=== PATIENT | female | born 1995 | race Caucasian/White ===

== ENCOUNTER 2024-08-15 10:44 | Emergency (ER) | payer MEDICAID, SELFPAY ==
[2024-08-15 10:44] VITALS: BP 124/99; PULSE 126; PULSE 134; RESP 18; TEMP 36.8; O2SAT 99; BMI 30.4
[2024-08-15 11:22] VITALS: BP 124/99; PULSE 134; RESP 18; TEMP 36.8; O2SAT 99
[2024-08-15 11:44] LABS: Absolute Lymphocyte Count 3.05 X10^3/uL (0.83-4.51); Absolute Neutrophil Count 4.6 X10^3/uL (2.0-7.7); Basophil# 0.05 X10^3/uL; Basophil% 0.6 % (0-1); Eosinophil# 0.14 X10^3/uL; Eosinophils% 1.7 % (0-5); Hematocrit 42.8 % (37-47); Hemoglobin 14.2 g/dL (12.0-15.0); Lymphocyte # 3.05 X10^3/ul (0.83-4.51); Lymphocyte % 36.1 % (19-41); Mean Corp Hgb Conc 33.2 g/dL (32-36); Mean Corpuscular Hgb 30.5 pg (27.0-32.0); Mean Corpuscular Volume 91.8 fL (81-99); Mean Platelet Vol. 10.1 fl (6.2-12.0); Monocyte# 0.55 X10^3/uL; Monocyte% 6.5 % (0-10); NRBC Flagged by Analyzer 0 % (0-5); Neutrophil # 4.64 X10^3/uL (2.7-7.7); Neutrophil % 54.7 % (47-70); Platelet Count 276 K/mm3 (150-450); RBC Distribution Width CV 12.2 % (11.6-14.6); RBC Distribution Width SD 41.1 fl (35.1-43.9); Red Blood Count 4.66 M/mm3 (4.2-5.4); White Blood Count 8.5 K/mm3 (4.4-11.0)
[2024-08-15] MEDS: 0.9% Normal Saline (1000mL) 1,000 ML 999 ML IV (11:59)
[2024-08-15 12:10] LABS: Color, Urine Yellow (Yellow); Glucose, Dipstick Normal (Normal); Ketone-Dipstick 15 mg/dl (Negative); Leukocyte Esterase-Dipstick 500 /ul (Negative); Nitrite-Dipstick Negative (Negative); Occult Blood-Urine 10 /ul (Negative); Protein-Dipstick 30 mg/dl (Negative); Urine Clarity Sl. Cloudy (Clear); Urine Urobilinogen 12 mg/dl (Normal)
[2024-08-15 12:11] LABS: AST(SGOT) 65 U/L (15-37); Alanine Aminotransfer ALT/SGPT 89 U/L (13-56); Albumin, Serum 4.2 g/dL (3.2-5.0); Alkaline Phosphatase 80 U/L (45-117); Anion Gap 5 (5-15); BUN 15 mg/dL (7-18); BUN/Creat Ratio 15.2 RATIO (10-20); Calcium,Total 9.6 mg/dL (8.5-10.1); Chloride 106 mmol/L (98-107); Creatinine, Serum 0.99 mg/dL (0.55-1.02); EST Glomerular Filtration Rate 71 mL/min (>60); Est Glom Filt Rate - Afr Amer 86 mL/min (>60); Estimated Creatinine Clearance 96.43 ml/min; Globulin 4.2 g/dL (2.2-4.2); Glucose 87 mg/dL (74-106); Potassium 3.3 mmol/L (3.5-5.1); Protein, Total 8.4 g/dL (6.4-8.2); Sodium Level 140 mmol/L (136-145)
[2024-08-15 12:12] LABS: Lactic Acid 1.3 mmol/L (0.4-1.9)
[2024-08-15 12:13] LABS: Urine Bilirubin Dipstick 1 mg/dL (Negative)
[2024-08-15 12:19] LABS: White Blood Cells 10-25 SEEN /hpf (0-5)
[2024-08-15 12:20] LABS: Bacteria 1+ /hpf (None Seen); Mucous, Urine 1+ /hpf (<or=2+); Squamous Epithelial Cells - UA 5-10 SEEN /hpf (5-10)
[2024-08-15 12:21] LABS: Internal QC Validated? YES +Cl - CLEAR BKGD; Pregnancy, Urine Negative Negative; Red Blood Cells-Urine 0 SEEN /hpf (0-5)
[2024-08-15] MEDS: Ondansetron 4 MG/2 ML Vial IV (12:27)
[2024-08-15] MEDS: morphine 8 MG/ML Syringe 6 MG IV (12:28)
[2024-08-15] MEDS: Ketorolac 15 MG/ML Vial IV (12:28)
--- NOTE | 2024-08-15 12:30 | CT_ITS ---
PROCEDURE: ABDOMEN/PELVIS W IV CONT ONLY REASON FOR EXAM: Left flank pain. Recent diagnosis of renal infection. TECHNIQUE: Abdomen and pelvis CT with intravenous contrast. No oral contrast. IV CONTRAST: 100 cc of Isovue-300. COMPARISON: None. FINDINGS: Lung bases: Clear Liver: Unremarkable. Gallbladder: Unremarkable. Spleen: Unremarkable. Pancreas: Unremarkable. Adrenals: Unremarkable. Kidneys: Unremarkable. Bladder: Unremarkable. Reproductive Organs: 2.3 cm cyst in the left ovary. Follicles are seen in the right ovary. Bowel: Colonic diverticulosis without diverticulitis. Appendix: Normal. Lymph nodes: No suspicious lymph node enlargement. Vasculature: Major vascular structures are unremarkable. Peritoneum / Retroperitoneum: No ascites. No free air. Bones: Unremarkable. CT/Abdomen/Pelvis W IV Cont ONLY IMPRESSION: 2.3 cm cyst in the left ovary. One or more dose reduction techniques were used (e.g., Automated exposure contr ol, adjustment of the mA and/or kV according to patient size, use of iterative reconstruction technique). Reading Location: [id number]
--- NOTE | 2024-08-15 13:50 | ED.RN ---
PT REQUESTED HER IV TO BE REMOVED AND IS LEAVING. STATES SHE W3AS MOVED FROM HER ROOM TO A HALLWAY BED AND ALSO HAD VISITORS COME BACK WHEN SHE DIDN'T WANT ANY. STATES SOMETHING ABOUT A SISTER IN LAW BUT DIDN'T REPEAT WHAT WAS SAID SO UNSURE WHAT IS GOING ON. IV WAS REMOVED AND PT AMBULATED FROM ER.
--- NOTE | 2024-08-15 15:21 | EDS_ITS ---
HPI HPI - GI History of Present Illness Chief Complaint: Flank Pain Informant: patient Narrative Narrative: Patient is a 29-year-old female with history of pyelonephritis and VICTOR MANUEL presenting with worsening nausea, vomiting and left flank pain. Patient states she came down with flulike symptoms with nausea and vomiting 5 days ago. She is having worsening pain in the back that started yesterday. She describes the pain as constant with fluctuating intensity. States it radiates to her back. States the pain is now unbearable. She does want her left at the bottom of her ribs. She does note her urines been dark for the past 3 days. She denies any dysuria. She denies any abnormal vaginal discharge. She has no history of kidney stones. Has Not noticed any hematuria but notes her urine has been darker. Yesterday she had temperature by 9.9. Yesterday she went to an outside emergency room where they did a urinalysis, gave her a dose of Zofran IM Toradol and discharged her home with a prescription for Omnicef, Zofran and oral Toradol. She feels her symptoms are worsening came in for repeat evaluation. She tells me that about 2 years ago she had kidney infection with E. coli is admitted to the hospital for couple days. She had an VICTOR MANUEL at that time. She follows with outpatient labs for 7 months until her kidney function normalized. Denies any history of any abdominal surgeries. Denies any concern for . No other complaints or concerns at this time. PFSH PFSH Allergy/AdvReac Type Severity Reaction Status Date / Time No Known Allergies Allergy Verified 08/15/24 10:45 Social History Smoking Status: Never smoker ROS ROS ED Constitutional Constitutional ED: Reports chills; Denies fever(s) Cardiovascular Cardiovascular: Denies chest pain Respiratory/Chest Respiratory/Chest: Denies cough or dyspnea Gastrointestinal Gastrointestinal: Reports abdominal pain, nausea and vomiting; Denies constipation or diarrhea Genitourinary Genitourinary ED: Denies dysuria, hematuria or urinary frequency Musculoskeletal Musculoskeletal: Reports back pain Integumentary Denies rash Neurologic Neurologic: Denies weakness EXAM Physical Exam Const Vital Signs: 08/15/24 10:44 08/15/24 10:44 08/15/24 11:22 Temperature 98.3 F 98.3 F Temperature Source Temporal Temporal Pulse Rate 126 H 134 H 134 H Respiratory Rate 18 18 Blood Pressure 124/99 H 124/99 H Blood Pressure Mean 107 107 Pulse Ox 99 99 Oxygen Delivery Method Room Air Room Air Positive well nourished and well developed General Appearance ED: well developed and NAD HEENT Reports moist mucous membranes Eyes General Eye ED: Negative for scleral icterus Neck supple Resp normal respiratory effort and clear to auscultation bilaterally Cardio regular rate, regular rhythm and no murmurs GI non-tender and non-distended Auscultation: normoactive bowel sounds Palpation: soft; Negative for tender or guarding Back/Spine General Back: CVA tenderness left Thoracic Spine / Upper Back: Negative for thoracic spinal tenderness Lumbar Spine / Lower Back: Negative for lumbar spinal tenderness Extremity General Extremety ED: Negative for edema General Extremity: Negative for edema Neuro Sensorium / Orientation: alert Motor Exam: Negative for general weakness Psych mental status grossly normal and thought process normal Skin Rashes: no rashes MDM MDM MDM Narrative Medical decision making narrative: Patient is evaluated for worsening left flank pain. Had outside urinalysis) antibiotics yesterday. Differential includes pyelonephritis, renal colic, colitis, muscle skeletal pain, shingles, ectopic and gastritis. She does not have any overlying rash or lower suspicion for shingles. Patient initially given IV fluids she reports multiple sets of vomiting is ta chycardic on arrival, Zofran, Toradol and morphine for symptom control. CBC normal. Lactate added on because of patient's tachycardia but this is normal. CMP shows mild elevation of AST and LAT which is nonspecific. This is on the wrong side of the patient's pain so lower suspicion for acute hepatobiliary process. Urinalysis is consistent with infection with 10-25 white blood cells, 1+ bacteria and 500 leukocyte esterase. Her test is negative. Lower suspicion for ectopic based on negative test. CT of the abdomen pelvis with IV contrast obtained shows a 2.3 cm cyst on the left ovary but otherwise no acute process. Her pain is pretty localized to the CVA regions of lower suspicion that ovarian torsion is causing her symptoms. Patient eloped to the emergency room prior to going over results. Per nursing report patient became quite upset when her spouse and 2 young children were brought back to see her stating that she did not consent for visitors. Nursing staff informing that she never informed them that she did not want visitors. Given that review of her ER visit from yesterday through [facility] shows that she was prescribed cefdinir she should continue to take this. Urine culture was sent today. Because of her pain she will be called pyelonephritis however she is not have any other laboratory finding concerning for systemic infection. Unable to evaluate patient to see how she felt after interventions or to repeat heart rate but she had eloped from the emergency room. Lab Data Labs: Laboratory Results - last 24 hr 08/15/24 08/15/24 11:30 11:59 WBC 8.5 RBC 4.66 Hgb 14.2 Hct 42.8 MCV 91.8 MCH 30.5 MCHC 33.2 RDW Std Deviation 41.1 RDW Coeff of [place] 12.2 Plt Count 276 MPV 10.1 Immature Gran % (Auto) 0.400 Neut % (Auto) 54.7 Lymph % (Auto) 36.1 [place] % (Auto) 6.5 Eos % (Auto) 1.7 Baso % (Auto) 0.6 Absolute Neuts (auto) 4.6 Absolute Lymphs (auto) 3.05 Nucleated RBC % 0 Sodium 140 Potassium 3.3 L Chloride 106 Carbon Dioxide 29.0 Anion Gap 5 BUN 15 Creatinine 0.99 Estim Creat Clear Calc 96.43 Est GFR (MDRD) Af Amer 86 Est GFR (MDRD) Non-Af 71 BUN/Creatinine Ratio 15.2 Glucose 87 Lactic Acid 1.3 Calcium 9.6 Total Bilirubin 1.20 H AST 65 H ALT 89 H Alkaline Phosphatase 80 Total Protein 8.4 H Albumin 4.2 Globulin 4.2 Albumin/Globulin Ratio 1.0 Urine Color Yellow Urine Clarity Sl. Cloudy Urine pH 6.0 Ur Specific [place] 1.020 Urine Protein 30 H Urine Glucose (UA) Normal Urine Ketones 15 H Urine Occult Blood 10 H Urine Nitrite Negative Urine Bilirubin 1 H Urine Urobilinogen 12 H Ur Leukocyte Esterase 500 H Urine RBC 0 SEEN Urine WBC 10-25 SEEN Ur Squamous Epith Cells 5-10 SEEN Urine Bacteria 1+ Urine Mucus 1+ Urine Test Negative Radiography Diagnostic Testing: Clinical Impression(s) from Imaging Studies Abdomen/Pelvis CT 08/15/24 12:30 IMPRESSION: 2.3 cm cyst in the left ovary. One or more dose reduction techniques were used (e.g., Automated exposure control, adjustment of the mA and/or kV according to patient size, use of iterative reconstruction technique). Reading Location: [id number] Discharge Plan Triage Chief Complaint: Flank Pain ED Provider: Betsy Meléndez Dx/Rx/DC Orders Clinical Impression: Acute left flank pain, Pyelonephritis Primary Care Provider: Care Physician,No Primary Referrals: Care Physician,No Primary [Primary Care Provider] - Print Language: Erit[place] Disposition Disposition: Elopement Discharge Date/Time: 08/15/24 13:54
== END 2024-08-15 13:54 | disposition left against medical advice (07) ==
PROVIDERS: Emergency Provider Emergency Medicine; Visit Provider Emergency Medicine
DX: N12 Tubulo-interstitial nephritis, not specified as acute or chronic (principal); N83.202 Unspecified ovarian cyst, left side
CPT/HCPCS: 74177; 80053; 81001; 81025; 83605; 85025; 87086; 87088; 87631; 96361; 96374; 96375; 99283; Q9967; A4216; J2405